=== PATIENT | female | born 1970 | race Two or more races ===

== ENCOUNTER → 2023-04-27 | Emergency (ER) | payer OTHER ==
[~2023-04-27] VITALS: Ht 157.5 cm; Wt 70.3 kg
[2023-04-27 09:48] VITALS: BP 110/74; TEMP 98.2; O2SAT 98
== END ==
LOC: ER 09:35
DX: L08.9 Local infection of the skin and subcutaneous tissue, unspecified (principal); Z60.2 Problems related to living alone